=== PATIENT | female | born 1995 | race Caucasian/White ===

== ENCOUNTER 2016-10-26 03:18 | Emergency (ER) | payer OTHER ==
[2016-10-26 04:31] VITALS: BP 132/75; PULSE 75; TEMP 98.7; BMI 29.2
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
[2016-10-26] MEDS ORDERED: IBUPROFEN 400 MG TABLET (FP) PO ONE ×2 (04:43→04:46)
== END 2016-10-26 05:08 | disposition home or self-care (01) ==
LOC: JER 03:18 → SUPCPDRO 03:18 → JER 05:08
DX: M54.2 Cervicalgia (principal); M54.5 Low back pain; M25.511 Pain in right shoulder; V43.62XA Car passenger injured in collision with other type car in traffic accident, initial encounter; Y92.414 Local residential or business street as the place of occurrence of the external cause; Y93.89 Activity, other specified; Y99.8 Other external cause status
CPT/HCPCS: 99281-25